=== PATIENT | male | born 1940 | race Hispanic/Latino ===

== ENCOUNTER 2017-08-12 10:11 | Emergency (ER) | payer MEDICARE, MEDICAID ==
[2017-08-12] MEDS ORDERED: traMADol HCl 50 MG TAB ONE (10:29)
== END 2017-08-12 11:10 | disposition home or self-care (01) ==
LOC: ERS 10:11
DX: M17.0 Bilateral primary osteoarthritis of knee (principal); M54.5 Low back pain
CPT/HCPCS: 99283

== ENCOUNTER 2018-03-01 16:19 | Inpatient (IN) | payer MEDICARE, MEDICAID ==
[2018-03-01 16:47] LABS: #Basophils 0.1 thou/uL (0.0-0.2); #Eosinphils 0.1 thou/uL (0.0-0.7); #Lymphocytes 1.1 thou/uL (1.20-3.40); #Monocytes 0.4 thou/uL (0.11-0.59); #Neutrophils 5.6 thou/uL (1.40-6.50); %Basophils 0.9 % (0.0-1.0); %Eosinophils 1.8 % (0.0-10.0); %Lymphocytes 14.7 % (21.0-51.0); %Monocytes 6.1 % (0.0-10.0); %Neutrophils 76.6 % (42.0-75.0); Mean Corpuscular HGB CONC 33.7 g/dL (32.0-36.0); Mean Corpuscular Hemoglobin 31.8 pg (27.0-31.0); Mean Corpuscular Volume 94.4 fL (78.0-98.0); Mean Platelet Volume 8.7 fL (7.4-10.4); Platelet Count 166 thou/uL (130-400); RBC Distribution Width 12.8 % (11.5-14.5); Red Blood Cell (RBC) Count 5.03 mill/uL (4.70-6.10); White Blood Cell (WBC) Count 7.3 thou/uL (4.8-10.8)
[2018-03-01 17:13] LABS: ALT (SGPT) 18 U/L (8-55); AST (SGOT) 33 U/L (5-34); Albumin 4.2 g/dL (3.4-4.8); Alkaline Phosphatase 78 U/L (40-150); Anion Gap 17 mmol/L (10-20); BUN (Urea Nitrogen) 24 mg/dL (8.4-25.7); Bilirubin, Total 0.2 mg/dL (0.2-1.2); Calc. Creatinine Clearance 0 mL/min (70-130); Calcium 9.9 mg/dL (7.8-10.44); Carbon Dioxide 22 mmol/L (23-31); Chloride 106 mmol/L (98-107); Estimated GFR-MDRD Greater than 90; Globulin 3.4 g/dL (2.4-3.5); Glucose 102 mg/dL (83-110); Potassium 3.8 mmol/L (3.5-5.1); Protein, Total 7.6 g/dL (5.8-8.1); Sodium 141 mmol/L (136-145)
--- NOTE | 2018-03-01 17:23 | CT ---
CT OF THE BRAIN WITHOUT CONTRAST: 03/01/18 HISTORY: COde stroke. COMPARISON: None. FINDINGS: No acute hemorrhage or infarct. No midline shift or mass effect. Ventricular size and extra-axial CSF spaces are normal. Likely old lacunar infarcts to the external capsule bilaterally. There is a hypodensity of the left basal ganglia which does not appear acute. The mastoids are relatively clear. Calvarium is intact. IMPRESSION: 1. No large volume infarction or hemorrhage. 2. Extensive right ethmoid sinusitis with irregularity and thinning of the right medial orbital wall. POS: [facility]
[2018-03-01 17:38] LABS: INR-International Normal Ratio 1.1; PTT 33.8 SEC (22.9-36.1); Prothrombin Time 13.9 SEC (12.0-14.7)
--- NOTE | 2018-03-01 17:47 | RAD ---
SINGLE VIEW OF THE CHEST: 03/01/18 COMPARISON: None. HISTORY: Right facial drooping. FINDINGS: Single view of the chest shows a normal sized cardiomediastinal silhouette. There is no evidence of c onsolidation, mass, or pleural effusion. The bones are unremarkable. IMPRESSION: No evidence of acute cardiopulmonary disease. POS: [facility]
[2018-03-01 19:18] LABS: Bilirubin Small (Negative); Blood, Urine Negative (Negative); Clarity CLEAR (Clear); Glucose, Urine (Dipstick) Negative (Negative); Leukocyte Trace (Negative); Nitrite Negative (Negative); Protein, Urine (Dipstick) Negative (Neg-Trace); Specific Gravity, Urine 1.031 (1.002-1.036); pH, Urine 5.5 (5.0-9.0)
[2018-03-01 19:21] LABS: Bacteria/HPF None Seen HPF (None Seen); Hyaline Casts/LPF 4-6 HYALINE CAST LPF (0-3 Hyaline); Pathc Cast-AUWi Flag 0.29 (0-2.49); RBC/HPF 0-3 HPF (0-3); Squamous Epithelial 0-3 HPF (0-3)
[2018-03-01 20:25] LABS: Troponin I 0.022 ng/mL (< 0.028)
[2018-03-01] MEDS ORDERED: Zolpidem Tartrate 5 MG TAB PO PRN (20:39)
[2018-03-01] MEDS ORDERED: Bisacodyl 5 MG TAB PO PRN (20:39)
[2018-03-01] MEDS ORDERED: Senokot S 8.6-50 MG TAB PO PRN (20:39)
[2018-03-01] MEDS ORDERED: Acetaminophen 650 MG Suppository PR PRN (20:39)
[2018-03-01] MEDS ORDERED: Labetalol HCl 100 MG/20 ML VIAL SLOW IVP PRN (20:39)
[2018-03-01] MEDS ORDERED: Calcium Carbonate 500 MG ChewTAB PO PRN (20:39)
[2018-03-01] MEDS ORDERED: Acetaminophen 325 MG TAB PO PRN (20:39)
[2018-03-01] MEDS ORDERED: Guaifenesin DM 100-10/5 ML UDCUP PO PRN (20:39)
--- NOTE | 2018-03-01 21:50 | HP ---
CHIEF COMPLAINT: Right-sided facial droop. HISTORY OF PRESENT ILLNESS: This is a 77-year-old male with past medical history of hypertension, osteoarthritis, CABG in the past, presenting with right-sided facial droop and slurred speech. Per the family, the patient started having right-sided facial droop the day prior to the hospital admission. The patient states that he did not really care for the right-sided facial droop because he thought it was going to resolve on its own. The patient's then called the son, who stated the right-sided facial droop was persisted and unresolving, and the patient was having slurred speech and that is what prompted the ED visit. At this time, the patient endorses pain in his joints due to his history of osteoarthritis, and the patient also endorses right-sided facial droop with slurred speech. Otherwise, the patient denies any headaches, fever, chills, chest pain, palpitations, abdominal pain, diarrhea, constipation, hematochezia, melena, dysuria, increasing frequency of urination. REVIEW OF SYSTEMS: Positive for right-sided facial droop and slurred speech. Otherwise as documented in the HPI, all other systems were reviewed and are negative. PAST MEDICAL HISTORY: Hypertension and osteoarthritis. FAMILY HISTORY: Reviewed and noncontributory to this visit. PAST SURGICAL HISTORY: 1. The patient had coronary artery bypass graft surgery. 2. The patient had right shoulder surgery. PSYCHIATRIC HISTORY: No previous psych history. SOCIAL HISTORY: The patient smokes about 3 to 4 cigarettes a day. The patient has been smoking for almost all his life. The patient is occasional drinker and the patient denies any illicit drugs. The patient lives at home with . ALLERGIES: NO KNOWN DRUG ALLERGIES. CURRENT MEDICATION: No current medications stated. PHYSICAL EXAMINATION: VITAL SIGNS: The patient's blood pressures is 158/72, pulse of 60, respiratory rate of 19, and O2 saturation is 97% on room air. GENERAL: The patient is alert and oriented x3, not in acute distress. Son is by the bedside, who is doing the translation. HEENT: Normocephalic and atraumatic. Pupils are equally round and reactive to light. Extraocular movements are intact. No scleral icterus. The patient does have right-sided facial droop as noted. The patient has asymmetric smile. Mucous membrane is moist. NECK: Trachea is midline. Full range of motion. Supple, nontender. LUNGS: Clear to auscultation bilaterally. No wheezing, no rales, no rhonchi appreciated. CARDIAC: Positive S1 and S2. Regular rate and rhythm. No murmurs, no gallops, no rubs appreciated. ABDOMEN: Soft, nontender, and nondistended. Positive bowel sounds in all quadrants. EXTREMITIES: The patient has 5/5 upper extremity strength, good pulses bilaterally, and 5/5 lower extremity strength. No edema noted. Good pulses bilaterally of the lower extremity. NEUROLOGIC: The patient has a right-sided facial droop and asymmetric smile. The patient has good strength in the upper and lower extremities. The patient has slurred speech. PSYCHIATRIC: The patient has normal affect, alert, and oriented x3. IMAGING DATA: CT scan of the head showed lacunar infarct to the external capsule bilaterally. Otherwise, no acute intracranial pathology. Chest x-ray showed no acute cardiopulmonary processes. LABORATORY DATA: WBC is 7.3, hemoglobin is 16.0, hematocrit is 47.5, and platelet count is 116. PT is 13.9, INR is 1.1, and PTT is 33.8. Sodium is 141, potassium is 3.8, chloride is 106, carbon dioxide of 22, anion gap of 17, BUN is 24, creatinine is 0.82, and GFR is greater than 90. Urinalysis, the patient has a positive trace leuko esterase. ASSESSMENT AND PLAN: This is a 77-year-old male being admitted for, 1. Right-sided facial droop, likely due to cerebrovascular accident. At this point, we have ordered MRI of the head. We will give the patient aspirin. We are going to start the patient on atorvastatin. We have consulted Neurology. We will follow up with Neurology's recommendations. We will continue the patient on current management at this time. 2. Asymptomatic urinary tract infection. At this point, we are going to monitor the patient. We will follow up on cultures. 3. History of hypertension. The patient is noncompliant. At this point, the patient's blood pressure is uncontrolled. The patient has been placed on p.r.n. blood pressure medications. We will continue to control the patient's blood pressure at this time. We will also start the patient on Norvasc 10 mg daily for the patient's blood pressure control. 4. Coronary artery disease, status post coronary artery bypass graft. At this point, the patient is stable. We will continue the patient on current management. 5. Deep venous thrombosis and gastrointestinal prophylaxis. Job ID: [id number]
[2018-03-01 23:07] LABS: Troponin I 0.021 ng/mL (< 0.028)
[2018-03-02] MEDS ORDERED: Ondansetron ODT 4 MG TAB SL PRN (01:46)
[2018-03-02] MEDS ORDERED: Ondansetron PF 4 MG/2 ML Vial IVP PRN (01:46)
[2018-03-02] MEDS: Ketorolac Tromethamine 30 MG/ML VIAL IVP PRN ×3 (02:14→15:28)
[2018-03-02] MEDS: Atorvastatin Calcium 40 MG TAB PO SCH ×2 (02:22→21:12)
[2018-03-02] MEDS: Famotidine 20 MG TAB PO SCH ×3 (02:22→21:12)
[2018-03-02] MEDS: Famotidine/PF 20 mg/2ml Vial SLOW IVP SCH ×3 (02:23→21:17)
[2018-03-02 02:28] VITALS: BMI 29.0
[2018-03-02 04:52] LABS: #Basophils 0.1 thou/uL (0.0-0.2); #Eosinphils 0.2 thou/uL (0.0-0.7); #Lymphocytes 1.5 thou/uL (1.20-3.40); #Monocytes 0.6 thou/uL (0.11-0.59); #Neutrophils 5.5 thou/uL (1.40-6.50); %Basophils 0.7 % (0.0-1.0); %Eosinophils 2.9 % (0.0-10.0); %Lymphocytes 18.4 % (21.0-51.0); %Monocytes 7.7 % (0.0-10.0); %Neutrophils 70.3 % (42.0-75.0); Hemoglobin 15.1 g/dL (14.0-18.0); Mean Corpuscular HGB CONC 33.8 g/dL (32.0-36.0); Mean Corpuscular Volume 94.8 fL (78.0-98.0); Mean Platelet Volume 8.4 fL (7.4-10.4); Platelet Count 157 thou/uL (130-400); RBC Distribution Width 12.8 % (11.5-14.5); White Blood Cell (WBC) Count 7.9 thou/uL (4.8-10.8)
[2018-03-02 05:09] LABS: Anion Gap 13 mmol/L (10-20); BUN (Urea Nitrogen) 23 mg/dL (8.4-25.7); Calc. Creatinine Clearance 83 mL/min (70-130); Calcium 9.5 mg/dL (7.8-10.44); Carbon Dioxide 26 mmol/L (23-31); Cardiac Risk 3.9 (Less than 4.5); Chloride 105 mmol/L (98-107); Cholesterol 165 mg/dl (< 200 Desired); Estimated GFR-MDRD Greater than 90; Glucose 92 mg/dL (83-110); HDL Cholesterol 42 mg/dL (>60 Neg Risk); LDL Cholesterol, Calculated 97 mg/dL; Sodium 140 mmol/L (136-145); Triglycerides 130 mg/dL (Less than 150)
[2018-03-02] MEDS: Nicotine 14 MG PATCH TD SCH (05:24)
[2018-03-02] MEDS: Enoxaparin Sodium 40 MG/0.4 ML SYRINGE SC SCH (08:50)
[2018-03-02] MEDS ORDERED: Lorazepam 2 MG/ML VIAL SLOW IVP SCH (10:30)
[2018-03-02] MEDS: Aspirin 81 mg Enteric Coated Tablet PO SCH (10:42)
[2018-03-02] MEDS: hydrALAZINE 20 MG/ML VIAL SLOW IVP PRN (15:28)
[2018-03-02] MEDS ORDERED: Morphine 4 MG/ML VIAL SLOW IVP SCH (20:30)
--- NOTE | 2018-03-02 22:58 | CON ---
DATE OF CONSULTATION: CHIEF COMPLAINT: Numbness of the right side. HISTORY OF PRESENT ILLNESS: The patient's history was given by the son and the patient. The patient is unable to speak Polish. On February 27, he came to the ER with arthritis pain. He received an injection to his left knee and went home. On the , he woke up with numbness of hand, face and tongue on the right hand side. He was asleep and woke up with this. His son thought he was a big droopy on the right side of the face. He was also having some difficulty swallowing thin liquids and had slurred speech. The patient even with repeated questioning is unable to tell me how much these symptoms lasted. At this time, he does not have the numbness anymore. No weakness is reported. No gait or balance problems are reported. PAST MEDICAL HISTORY: The patient has history of rheumatoid arthritis, which is the main issue with arthritis and bursitis in the left arm, and hypertension. FAMILY HISTORY: The patient does not report any history of stroke in their family. SOCIAL HISTORY: He smokes 3 to 4 cigarettes a day and has been smoking for almost all his life. He is an occasional drinker, lives at home with his , and family is supportive and helpful. PAST SURGICAL HISTORY: He had a right shoulder surgery in 2011. He does have a surgery on his chest wall, but the patient's son stated that even though it is listed in his medical record, the patient never had a coronary artery surgery. It is more of a lesion or a pimple on the chest wall according to the son, and there is a remnant keloid scar. CURRENT MEDICATIONS: None. Even though, he is supposed to take various medications. Son states he does not take any medications at home on a regular basis. REVIEW OF SYSTEMS: PULMONARY: Negative for shortness of breath. CARDIAC: Negative for chest pain. GASTROINTESTINAL: Negative for stomach problems such as vomiting, diarrhea or abdominal pain. NEUROLOGIC: Positive for numbness. HEMATOLOGICAL: Negative for any bleeding diathesis or problems such as anemia. RHEUMATOLOGICAL: Positive for arthritis. DERMATOLOGICAL: Negative. LABORATORY DATA: His lab workup includes white count 7.9, hemoglobin 15.1, hematocrit 44.6, and platelets 157. PT 13.9, INR 1.1, and PTT 33.8. Chemistry, sodium 140, potassium 4, chloride 105, bicarb 26, BUN 23, and creatinine 0.81. Cholesterol panel is within normal limits. Urinalysis is positive for small trace of leukocyte esterase, positive for ketones. Urine is negative for any blood and nitrite is also negative. No bacteria seen. DIAGNOSTIC DATA: His MRI scan is pending. CT of the head did not show any acute stroke, and he had extensive right ethmoid sinusitis with a thinning of the right medial orbital wall. PHYSICAL EXAMINATION: VITAL SIGNS: Blood pressure 190/78, temperature 97.6, and pulse 54. GENERAL APPEARANCE: Thin built, very pleasant gentleman with keloid on his sternum and bursitis of the left ulnar region, appears to be uncomfortable due to arthritis pain and he has arthritis changes in the left knee as well. CHEST: Clear. Vesicular breathing. CARDIOVASCULAR: S1 and S2 heard. No murmurs. ABDOMEN: Soft. NEUROLOGIC: Higher intellectual function. Normal orientation to time, place, and person. Cranial nerves, normal extraocular movements. No facial asymmetry. Normal sensation of face bilaterally. Tongue, midline. No atrophy noted. Normal hearing bilaterally. Normal elevation of palate bilaterally. Motor, bulk normal, tone normal. Strength 5/5 in upper extremities and lower extremities in iliopsoas, hamstrings, quadriceps, ankle dorsiflexion, plantar flexion, deltoid, biceps, triceps, wrist extension and flexion, and finger extension and flexion. Deep tendon reflexes were 1+ in upper extremities and 2+ in lower extremities. Sensory, normal to touch and proprioception. Cerebellar, normal [id number] and heel-to- perez. IMPRESSION: The patient is a 77-year-old man with not much medical problems other than rheumatoid arthritis and he is currently in the hospital for evaluation of right-sided numbness. His son reports he may have mild facial asymmetry on the right side. On exam, he has slight flattening of the right nasolabial fold, otherwise rest of neurological examination is normal. Diagnosis is most consistent with transient ischemia attack. At this time, he is waiting for his MRI scan and further workup including echocardiogram. RECOMMENDATIONS: Please complete his stroke workup including echo, MRI, and carotid artery Doppler. Agree with aspirin for stroke prophylaxis. I will see the patient again tomorrow for a followup. Please call if he has any further questions. Job ID: [id number] [facility]
[2018-03-03] MEDS: Nicotine 14 MG PATCH TD SCH (05:28)
[2018-03-03] MEDS: Famotidine/PF 20 mg/2ml Vial SLOW IVP SCH (07:53)
[2018-03-03] MEDS: Aspirin 81 mg Enteric Coated Tablet PO SCH (08:15)
[2018-03-03] MEDS: Enoxaparin Sodium 40 MG/0.4 ML SYRINGE SC SCH (08:15)
[2018-03-03] MEDS: Famotidine 20 MG TAB PO SCH (08:15)
--- NOTE | 2018-03-03 10:33 | ULT ---
BILATERAL CAROTID DUPLEX ULTRASOUND WITH SPECTRAL ANALYSIS AND COLOR FLOW EVALUATION: DATE: 03/03/2018. HISTORY: CVA. FINDINGS: Ballard scale, color flow, Doppler evaluation, and spectral analysis of the bilateral carotid arteries i s performed with 2D imaging. There is mild atherosclerotic plaque seen within the internal carotid a rteries bilaterally, greater on the right, as well as involving the right common carotid artery and e ach external carotid artery. There is less than 50% maximal stenosis in the bilateral internal carotid arteries according to the p eak systolic velocities and the ICA/CCA ratios. Peak systolic velocity in the right ICA is 78.7 cm/s with an ICA/CCA ratio of 1.31. Pulmonary vascular congestion in the left ICA is 93 cm/s with an ICA /CCA ratio of 0.84. Antegrade flow is demonstrated in the vertebral arteries bilaterally. IMPRESSION: No hemodynamically stenosis in the bilateral internal carotid arteries. POS: [facility]
[2018-03-03 11:43] VITALS: TEMP 97.9
[2018-03-03 12:04] VITALS: BP 191/86
--- NOTE | 2018-03-03 12:14 | DIS ---
DATE OF ADMISSION: 03/01/2018 DATE OF DISCHARGE: 03/03/2018 PRIMARY CARE PHYSICIAN: Lia Wise MD DISCHARGE DIAGNOSES: 1. Transient ischemic attack versus acute cerebrovascular accident. Neurology favors transient ischemic attack. 2. Right-sided facial droop and slurred speech. 3. Hypertension, essential. 4. . CONSULTATIONS: Neurology, Dr. Larisa Matt. PROCEDURES: 2D echocardiogram and carotid Doppler study. Carotid Doppler study showed no hemodynamically significant stenosis. Echocardiogram report is pending. HISTORY AND PHYSICAL: Mr. Carlos Medeiros is a 77-year-old gentleman, who presented to the emergency department for evaluation of right facial droop and slurred speech. There was concern for a stroke, so we were called for admission. HOSPITAL COURSE: The patient was seen and examined by Dr. Gary Bowen late on 03/01/2018, the patient placed in observation status. MRI was ordered for the next morning as well as the Neurology study. Overnight, the patient almost completely resolved. The morning of 03/02, he refused MRI to be done, and echo and carotid ultrasound were not ordered. He was seen by Neurology, who recommended getting the echo and the carotid Doppler study and so those were subsequently ordered and done. The patient's further history was obtained and revealed that he was not actually taking the aspirin as prescribed. His symptoms almost completely gone today. He was stable for discharge with outpatient followup. PHYSICAL EXAMINATION: The patient was seen and examined on the day of discharge. DISCHARGE PLAN: Disposition discussed with the patient [id number] at the bedside. DISCHARGE MEDICATIONS: New medications: 1. Aspirin 81 mg daily. 2. Atorvastatin 80 mg p.o. at bedtime. Home medications to continue; 1. Amlodipine 5 mg p.o. daily. 2. Aspirin/caffeine one tablet p.o. p.r.n. headache. FOLLOWUP APPOINTMENTS: 1. Primary care physician within a week. 2. Dr. Matt in 1 to 2 weeks. DISCHARGE ACTIVITY: As tolerated. DISCHARGE DIET: Heart healthy diet recommended. DISCHARGE CONDITION: Stable. DISPOSITION: Discharged home via private vehicle with home health care for PT, OT, and ST. Discharge diet modifications for speech therapy. Recommended pureed diet with nectar thick liquids. Job ID: [id number]
[2018-03-03] MEDS: Ketorolac Tromethamine 30 MG/ML VIAL IVP PRN (12:36)
[2018-03-03] MEDS: hydrALAZINE 20 MG/ML VIAL SLOW IVP PRN (15:40)
--- NOTE | 2018-03-03 17:58 | EKG ---
Test Reason : STROKE ALERT Blood Pressure : / mmHG Vent. Rate : 065 BPM Atrial Rate : 065 BPM P-R Int : 138 ms QRS Dur : 112 ms QT Int : 426 ms P-R-T Axes : 042 -28 007 degrees QTc Int : 443 ms Sinus rhythm with occasional Premature ventricular complexes Otherwise normal ECG Confirmed by MARSHALL WOODALL DO ([id number]), photographic editor BRANDON BOJORQUEZ ([id number] on 03/03/2018 5:58:08 PM Referred By: Confirmed By:MARSHALL WOODALL DO
== END 2018-03-03 15:54 | disposition home or self-care (01) | DRG 69 ==
LOC: ERS 16:19 → 2SE 18:45
PROVIDERS: ADMIT Family Medicine; ATTEND Family Medicine
DX: G45.9 Transient cerebral ischemic attack, unspecified (principal); I10 Essential (primary) hypertension; M19.90 Unspecified osteoarthritis, unspecified site; F17.210 Nicotine dependence, cigarettes, uncomplicated; I25.10 Atherosclerotic heart disease of native coronary artery without angina pectoris; Z91.14 Patient's other noncompliance with medication regimen; Z95.1 Presence of aortocoronary bypass graft
CPT/HCPCS: 36415; 36416; 70450; 71045; 80048; 80053; 80061; 81003; 81015; 84484; 85025; 85610; 85730; 93005; 93880; 94760; G8978-GP-CK; G8979-GP-CI; G8996-GN-CK; G8997-GN-CK; J0360; J1650; J1885; J2060; J2270; S0028